=== PATIENT | male | born 1995 | race Asian ===

== ENCOUNTER 2018-12-27 00:01 | Emergency (ER) | payer OTHER ==
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
[2018-12-27 03:05] VITALS: BP 137/107
== END 2018-12-27 03:04 | disposition home or self-care (01) ==
LOC: ED 00:01
DX: T21.21XA Burn of second degree of chest wall, initial encounter (principal); T21.22XA Burn of second degree of abdominal wall, initial encounter; T31.0 Burns involving less than 10% of body surface; X12.XXXA Contact with other hot fluids, initial encounter; Y92.000 Kitchen of unspecified non-institutional (private) residence as the place of occurrence of the external cause; Z87.891 Personal history of nicotine dependence
CPT/HCPCS: 99282